=== PATIENT | male | born 1960 | race Caucasian/White ===

== ENCOUNTER 2018-09-04 09:38 | Observation (INO) ==
[2018-09-04] MEDS ORDERED: Aspirin 81 MG TAB.CHEW PO ONE (09:43)
[2018-09-04] MEDS ORDERED: 0.9 % Sodium Chloride 1,000 ML IVC ONE (09:44)
--- NOTE | 2018-09-04 09:45 | Emergency Department Note ---
Disposition Clinical Impression: Atypical chest pain, Acute renal insufficiency Heat exhaustion Qualifiers: Encounter type: initial encounter Qualified Code(s): T67.5XXA - Heat exhaustion, unspecified, initial encounter Disposition: Admitted As Inpatient Condition: Good Referrals: Aidan Merida MD [Primary Care Provider] - () Forms: ED Satisfaction Letter Chest Pain HPI - General Chief Complaint: ED Chest Pain Stated Complaint: substernal chest pain, vomiting Time Seen by Provider: 09/04/18 09:39 Source: patient, EMS, other (Urgent care provider) Mode of arrival: EMS Limitations: no limitations Vital Signs Reviewed: Yes Nursing Notes Reviewed: Yes - History of Present Illness HPI Narrative: Contacted at 9:10 AM from [facility] urgent care that there is a 58-year-old with some intermittent chest pain with nausea that had been going on for 24 hours they desired to transfer. Advised he did not have a family history of heart disease they did report that he had a history of elevated cholesterol, hypertension and a family history of heart disease. They noted he had a stress test 5 years ago but he did not know the result. Patient was evaluated immediately upon arrival to emergency department and he reports she has been having some intermittent chest pain that he cannot describe other than it is "just a little pain". He states it lasts at most a couple seconds and it has been no more frequent than every 2-3 hours. He estimates he has had 4 or 5 of these pains since yesterday evening. He also complains of some body aches including back of his neck and his back. He had some nausea. Vomited once last night after eating area and he was not having chest pain associated with the vomiting. He had also a "charley horse" last night. He can not identify anything that really breath or pain on other than it might of been with certain motions. He thought it was just something musculoskeletal. The pain has not been exertional and he was quite exertional yesterday. He states at work he was around heat and options and was sweating a lot. He denies any shortness of breath, cough, fevers or chills. Denies abdominal or back pains. He is not having weakness or dizziness. Denies any lower extremity complaints. He states he is recently recovered from the left hip replacement and has been back to work for 3 weeks. He does have a history of diabetes, hypertension, elevated cholesterol. He states he his father had some heart trouble but he did not have a heart attack, stent or bypass. He knows of no other family history of heart disease. He does not have obesity, personal history of heart disease, DVT or PE. He has been a nonsmoker for 30 years. He is completely pain-free at this time he did have one pain about an hour prior to arrival. Pt complaint: chest pain Onset (ago): day(s) (1) Duration: intermittent Onset: during rest Pain Location: substernal Severity: mild Quality: other ("Just a little pain") Pain Radiation: none Improves with: nothing Worsens with: movement Associated symptoms: Reports: nausea, vomiting (History evening not associated with chest pain), diaphoresis (At work). Denies: syncope, palpitations, fever, cough, leg swelling - Related Data Home Medications Medication Instructions Recorded Confirmed Aspirin 81 mg PO DAILY 05/17/17 09/04/18 Celecoxib [Celebrex] 200 mg PO DAILY PRN 05/17/17 09/04/18 Lisinopril [Zestril] 40 mg PO DAILY 05/17/17 09/04/18 Lovastatin 40 mg PO DAILY 05/17/17 09/04/18 Mv-Mn/FA/Vit K/Lycop/Lut/Coq10 1 tab PO DAILY 05/17/17 09/04/18 [Daily Multivitamin Capsule] Pantoprazole Sodium 40 mg PO BID 05/17/17 09/04/18 Tamsulosin [Flomax] 0.4 mg PO DAILY 05/17/17 09/04/18 metFORMIN [Glucophage] 500 mg PO BIDWM 05/17/17 09/04/18 Psyllium Husk [Fiber] 1 tab PO DAILY 02/14/18 09/04/18 Previous Rx's Medication Instructions Recorded Aspirin Enteric Coated [Aspirin EC] 325 mg PO BID #20 tablet. 02/14/18 OxyCODONE Immed Rel [Roxicodone 5 5 mg PO Q6HR PRN 5 Days #20 tablet 02/14/18 MG] Allergies Allergy/AdvReac Type Severity Reaction Status Date / Time No Known Allergies Allergy Verified 02/14/18 13:33 All systems ED: reviewed and negative except as stated. Chest Pain PMH - Past Medical History Medical history: Reports: arthritis, diabetes, GERD, hyperlipidemia, hypertension, other (Benign prostatic hypertrophy). Denies: atrial fibrillation, coronary artery disease, DVT, myocardial infarction, pulmonary embolus, thyroid disease Surgical history: Reports: colectomy, hip replacement (Left), orthopedic, other (Back surgery) Psychiatric history: Reports: no psych history Prior Cardiac Testing/Procedures: Stress Test - Social History Smoking Status: Former smoker (30 years ago) Alcohol use: Reports: none Drug use: Reports: none Physical Exam - General Limitations: no limitations General appearance: alert, in no apparent distress - Head Head exam: atraumatic, normocephalic, normal inspection - Eye Eye exam: Present: normal appearance, PERRL, EOMI - ENT ENT exam: normal exam, normal oropharynx, mucous membranes moist - Neck Neck exam: Present: normal inspection, full ROM, trachea midline - Chest Chest inspection: Present: normal inspection, symmetric chest wall rise. Absent: tenderness - Respiratory Respiratory exam: Present: normal lung sounds bilaterally. Absent: respiratory distress, wheezes, prolonged expiratory phase - Cardiovascular Cardiovascular exam: Present: regular rate, normal rhythm, normal heart sounds. Absent: tachycardia - Abdominal Exam Abdominal exam: Present: soft, Non-Tender, normal bowel sounds. Absent: tenderness, distention, guarding, rebound, rigidity - Extremities Exam Extremities exam: Present: normal inspection, full ROM, normal capillary refill. Absent: tenderness, pedal edema, calf tenderness - Expanded Lower Extremity Exam Neurovascular/Tendon exam: Present: normal capillary refill. Absent: motor deficit, sensory deficit, tendon deficit Gait: observed and normal (Patient ambulated easily from the EMS, to our examination bed.) - Back Exam Back exam: Present: normal inspection, full ROM. Absent: tenderness - Neurological Exam Neurological exam: Present: alert, oriented X3 - Psychiatric Psychiatric exam: Present: normal affect, normal mood. Absent: agitated, anxious - Skin Skin exam: Present: warm, dry, intact, normal color. Absent: diaphoresis, pallor Course Course Narrative: 1030: All testing has been discussed with the patient and his and subsequently with Dr. Vasques. He is agreeable with observing this patient. He is demonstrated a significant decline of his renal function from a creatinine of 0.83-2.15. This is likely associated with his work, sweating, dehydration, metformin and celecoxib. He has been recommended inpatient observation with hydration. We will follow his renal function and repeat troponins. There is no current evidence to suggest an acute myocardial event. Verbal orders have been obtained from Dr. Vasques for his observation. Vital Signs Temperature 98 F 09/04/18 09:40 Pulse Rate 95 09/04/18 09:40 Respiratory Rate 18 09/04/18 09:40 Blood Pressure 114/75 09/04/18 09:40 O2 Sat by Pulse Oximetry 97 09/04/18 09:40 Temperature 98 F 09/04/18 09:40 Pulse Rate 91 09/04/18 10:00 Respiratory Rate 18 09/04/18 10:00 Blood Pressure 102/72 09/04/18 10:00 O2 Sat by Pulse Oximetry 95 09/04/18 10:00 Oxygen Delivery Oxygen Delivery Room Air Chest Pain - Differential Diagnosis Likely: atypical chest pain (Heat related illness), costalchondritis, chest pain - Lab Data Lab results reviewed: Yes I reviewed the patient's lab results. Result diagrams: 09/04/18 09:54 09/04/18 09:54 Lab Results 09/04/18 09/04/18 Range/Units 09:54 09:54 WBC 8.9 (4.3-11.1) K/mcL RBC 5.15 (4.19-5.50) M/mcL Hgb 14.4 (12.9-16.9) g/dL Hct 43.7 (37.5-50.1) % MCV 84.9 (83.0-100.0) fL MCH 28.0 (28.0-33.3) pg MCHC 33.0 (31.6-35.5) g/dL RDW 14.6 H (11.5-14.5) % Plt Count 263 (140-400) K/mcL MPV 9.1 L (9.4-12.4) fL Immature Gran % 0.3 (0-4) % Seg Neutrophils % 63.9 % Lymphocytes % 22.5 % Monocytes % 11.9 % Eosinophils % 1.2 % Basophils % 0.2 % Neutrophils # 5.7 (1.6-8.9) K/mcL Lymphocytes # 2.0 (0.6-4.6) K/mcL Monocytes # 1.1 (0.0-1.3) K/mcL Eosinophils # 0.1 (0.0-0.6) K/mcL Basophils # 0.0 (0.0-0.2) K/mcL Sodium 137 (136-145) mEq/L Potassium 4.3 (3.5-5.1) mEq/L Chloride 102 (98-107) mEq/L Carbon Dioxide 25 (23-29) mEq/L BUN 42 H (6-20) mg/dL Creatinine 2.15 H (0.70-1.30) mg/dL Est GFR ( Amer) 38 L (> 60) Est GFR (Non-Af Amer) 32 L (> 60) BUN/Creatinine Ratio 20 (6-26) Glucose 106 H (70-105) mg/dL Calculated Osmolality 295 (280-300) Calcium 9.3 (8.6-10.3) mg/dL Troponin I < 0.03 (< 0.04) ng/mL - Radiology Data Radiology results reviewed: Yes I reviewed the patient's radiology results. Single view chest x-ray is performed. This does not demonstrate evidence for infiltrate, effusion, pneumothorax, foreign body or heart failure. The cardiac silhouette is normal. I do not see abnormality to the osseous structures of the chest. This is on my interpretation. - EKG Data EKG attestation: Yes I reviewed and interpreted this EKG. EKG shows normal: sinus rhythm, axis, intervals, QRS complexes, ST-T waves Rate: tachycardia (105) Rhythm: PAC's Interpretation: no acute changes, normal EKG Heart Score - Score History: Slightly Suspicious EKG: Normal Age: 45-65 Risk Factors: Equal/Greater than 3 risk factor or history of atherosclerotic disease Troponin: Less than normal limit HEART Score Total: 3
[2018-09-04 10:01] LABS: Basophils % 0.2 %; Eosinophils # 0.1 K/mcL (0.0-0.6); Eosinophils % 1.2 %; Hematocrit 43.7 % (37.5-50.1); Hemoglobin 14.4 g/dL (12.9-16.9); Immature Granulocytes % 0.3 % (0-4); Lymphocytes % 22.5 %; Mean Corpuscular Volume 84.9 fL (83.0-100.0); Mean Platelet Volume 9.1 fL (9.4-12.4); Monocytes # 1.1 K/mcL (0.0-1.3); Monocytes % 11.9 %; Neutrophils # 5.7 K/mcL (1.6-8.9); Platelet Count 263 K/mcL (140-400); Red Blood Count 5.15 M/mcL (4.19-5.50); Red Cell Distribution Width 14.6 % (11.5-14.5); Segmented Neutrophils % 63.9 %
[2018-09-04 10:18] LABS: BUN/Creatinine Ratio 20 (6-26); Blood Urea Nitrogen 42 mg/dL (6-20); Calcium 9.3 mg/dL (8.6-10.3); Carbon Dioxide 25 mEq/L (23-29); Chloride 102 mEq/L (98-107); Glucose 106 mg/dL (70-105); Osmolality,Calculated 295 (280-300); Potassium 4.3 mEq/L (3.5-5.1); Sodium 137 mEq/L (136-145); Troponin I < 0.03 ng/mL (< 0.04); eGFR For Non-African Americans 32 (> 60)
[2018-09-04] MEDS ORDERED: Dextrose Gel 15 GM/37.5 ML TUBE PO PRN ×2 (10:56)
[2018-09-04] MEDS ORDERED: MOM Conc 10 ML UD.LIQ PO PRN (10:56)
[2018-09-04] MEDS ORDERED: Ondansetron 4 MG/2 ML VIAL IVP PRN (10:56)
[2018-09-04] MEDS ORDERED: *HR* OxyCODONE Immed Rel 5 MG TABLET PO PRN (10:56)
[2018-09-04] MEDS ORDERED: Naloxone 0.4 MG/ML INJ IVP PRN (10:56)
[2018-09-04] MEDS ORDERED: D5% in Water 1,000 ML IVC PRN (10:56)
[2018-09-04] MEDS ORDERED: *HR* Dextrose 50 % in Water (Syg) 50 ML SYRINGE IVP PRN (10:56)
[2018-09-04] MEDS ORDERED: Mag Hydrox/Al Hydrox/Simeth 30 ML UDC PO PRN (10:56)
[2018-09-04] MEDS: Insulin LISPRO 300 UNITS/3 ML VIAL SQ SCH ×2 (12:24→18:22)
[2018-09-04] MEDS: 0.9 % Sodium Chloride 1,000 ML IVC SCH (12:26)
--- NOTE | 2018-09-04 13:11 | Electrocardiograph Report ---
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
--- NOTE | 2018-09-04 18:19 | Internal Med History&Physical ---
Date of Encounter: 09/04/18 Time of Encounter: 17:40 Assessment and Plan (1) Acute renal insufficiency Current visit: Yes Status: Acute Duration unknown but new from May 2018 labs. Urinalysis and abdomen/pelvic CT will be done to further evaluate. IV fluids have been ordered and labs will be rechecked in a.m. (2) Low TSH level Current visit: Yes Status: Chronic Check thyroid panel in a.m. (3) Hypertension Current visit: No Status: Chronic Blood pressure low normal in emergency room. Hold lisinopril to avoid worsening azotemia. Qualifiers: Hypertension type: unspecified Qualified Code(s): I10 - Essential (primary) hypertension (4) Type 2 diabetes mellitus Current visit: No Status: Chronic Hemoglobin A1c was 6.0% on 06/02/2018. Metformin will be held due to acute renal failure. Accu-Cheks with SSI will be done. 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 Ruelas is a 58 year old male who was sent to [facility] ER from [facility] urgent care after he presented there with complaints of back pain onset yesterday. He describes as discomfort extending from his neck to his low back area. He reports previous similar pain approximately 10 years ago. He reports ~5 "twinges" of chest pain lasting less than 2 seconds yesterday. He reports 1 episode of vomiting and no diarrhea. He was evaluated in emergency room and was found to have significant azotemia which had not been present on May 2018 labs. He was admitted to [facility] floor for ongoing care needs. He denies any change in urine color or frequency of urination. He denies documented kidney disorders in the past. He denies bladder disorders. He has BPH diagnosis and is on Flomax. Past Med Surg Social Fam HX - Past Medical History Medical history: arthritis, diabetes, GERD, hyperlipidemia, hypertension, other Additional medical history: Enlarged prostate Psychiatric history: no psych history - Past Surgical History Surgical History: colectomy, hip replacement, orthopedic, other Additional surgical history: egd. colonoscopy - Social History Smoking Status: Former smoker Smokeless Tobacco Status: Yes Alcohol use: none Drug use: none - Family History Father Living Status: Hx Family Cancer: Yes (prostate cancer mets to brain) Mother Living Status: Hx Family Neuromuscular Disorders: Yes (Parkinsons) Internal Medicine - H&P: Meds Aspirin 81 mg PO DAILY 05/17/17 [History] Celecoxib [Celebrex] 200 mg PO DAILY PRN 05/17/17 [History] Lisinopril [Zestril] 40 mg PO DAILY 05/17/17 [History] Lovastatin 40 mg PO DAILY 05/17/17 [History] Mv-Mn/FA/Vit K/Lycop/Lut/Coq10 [Daily Multivitamin Capsule] 1 tab PO DAILY 05/17/17 [History] Pantoprazole Sodium 40 mg PO BID 05/17/17 [History] Tamsulosin [Flomax] 0.4 mg PO DAILY 05/17/17 [History] metFORMIN [Glucophage] 500 mg PO BIDWM 05/17/17 [History] Aspirin Enteric Coated [Aspirin EC] 325 mg PO BID #20 tablet.dr 02/14/18 [Rx] OxyCODONE Immed Rel [Roxicodone 5 MG] 5 mg PO Q6HR PRN 5 Days #20 tablet 02/14/18 [Rx] Psyllium Husk [Fiber] 1 tab PO DAILY 02/14/18 [History] Allergy/AdvReac Type Severity Reaction Status Date / Time No Known Allergies Allergy Verified 02/14/18 13:33 All Systems PM: A 10-system review of systems was performed and is negative for pertinent findings except as documented above in the HPI. Review of systems: Alcohol: His weight has increased from 85.729 kg February 2018 to present weight of 94.801 kg. Cardiovascular: He has history of hypertension but denies SD heart failure angina DVT or pulmonary embolus Respiratory: He smoked from approximately age [age] but denies chronic lung disease. He does not use home oxygen. GI: He reports EGD was done 2017 with esophageal dilatation. He had a pproximately 6 inches of colon resection in 1973 for colon polyps. His most recent colonoscopy was 2018. He denies disorders of his liver gallbladder or exocrine pancreas : As per history of present illness Neurologic: He denies large distribution strokes or seizures. Endocrine: He was diagnosed with DM 2 approximately 1999. He has dyslipidemia with low HDL. TSH has been suppressed on all 6 lab checks since June 2014. Free T4 and total T3 levels April 2017 were normal. Hematology/oncology: He denies blood disorders cancers or anemia Psychiatric: He denies anxiety depression or other mental health issues [place] skeletal: He has had left hip replacement February 2018. 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 He denies gout or other bone joint or muscle disorders. - Constitutional Vitals: Temp Pulse Resp BP Pulse Ox 97.9 F 91 16 113/72 96 09/04/18 14:07 09/04/18 14:07 09/04/18 14:07 09/04/18 14:07 09/04/18 14:07 Exam: Gen.: He is a well-developed well-nourished male resting comfortably in bed who appears in no acute distress HEENT: Head is atraumatic and normocephalic. Eyes: EOMI. There is no scleral icterus. Mouth: Mucosa is moist. Neck: Supple and nontender. There is no thyromegaly or adenopathy noted. Heart: Regular without murmurs gallops or ectopics Lungs: No wheezes or crackles are heard. Back: Straight without flank tenderness or presacral edema Abdomen: Soft and nontender. No masses or guarding are noted. Extremities: There is no cyanosis edema or clubbing noted. Dorsalis pedis and posterior tibial pulses are 1-2 over 2 bilaterally. Neurologic: Mental status: He is talkative and a good historian. Cranial nerves: Smile is symmetric. Forehead wrinkles bilaterally. Tongue protrudes midline. EOMI. Motor: There is no pronator drift. Cerebellar: Finger to nose is intact bilaterally. Skin: Warm and dry. Internal Med - H&P Results - Labs CBC & Chem 7: 09/04/18 09:54 09/04/18 09:54 Labs: Short CBC 09/04/18 Range/Units 09:54 WBC 8.9 (4.3-11.1) K/mcL Hgb 14.4 (12.9-16.9) g/dL Hct 43.7 (37.5-50.1) % Plt Count 263 (140-400) K/mcL Neutrophils # 5.7 (1.6-8.9) K/mcL BMP 09/04/18 09:54 Sodium 137 Potassium 4.3 Chloride 102 Carbon Dioxide 25 BUN 42 H Creatinine 2.15 H Glucose 106 H Calcium 9.3 Cardiac Enzymes 09/04/18 09/04/18 Range/Units 09:54 11:54 Troponin I < 0.03 < 0.03 (< 0.04) ng/mL - Impressions ITS Impressions Chest X-Ray 09/04/18 09:43 IMPRESSION: No evidence of acute cardiopulmonary disease. D/ / Lopez Rodriguez MD / Lopez Rodriguez MD Interpreting Provider: Lopez Rodriguez MD
[2018-09-04 21:17] LABS: Bilirubin,Urine Negative (Negative); Blood,Urine Negative (Negative); Clarity,Urine Clear (Clear); Color,Urine Yellow (Yellow); Glucose,Urine (UA) Normal (Normal); Ketones,Urine Negative (Negative); Leukocyte Esterase,Urine Negative (Negative); Nitrite,Urine Negative (Negative); PH,Urine 5.5 pH Units (5.0-8.0); Protein,Urine Negative (Neg-Trace); Urobilinogen,Urine Normal (Normal)
[2018-09-05 06:12] LABS: Basophils % 0.3 %; Eosinophils # 0.2 K/mcL (0.0-0.6); Eosinophils % 3.4 %; Hematocrit 40.8 % (37.5-50.1); Hemoglobin 13.1 g/dL (12.9-16.9); Immature Granulocytes % 0.3 % (0-4); Lymphocytes # 1.7 K/mcL (0.6-4.6); Lymphocytes % 28.1 %; Mean Corpuscular HGB Conc 32.1 g/dL (31.6-35.5); Mean Corpuscular Hemoglobin 27.9 pg (28.0-33.3); Mean Corpuscular Volume 86.8 fL (83.0-100.0); Monocytes # 0.8 K/mcL (0.0-1.3); Neutrophils # 3.2 K/mcL (1.6-8.9); Platelet Count 248 K/mcL (140-400); Red Cell Distribution Width 14.4 % (11.5-14.5); Segmented Neutrophils % 54.9 %
[2018-09-05] MEDS: 0.9 % Sodium Chloride 1,000 ML IVC SCH (07:18)
[2018-09-05] MEDS: Insulin LISPRO 300 UNITS/3 ML VIAL SQ SCH (07:29)
[2018-09-05] MEDS ORDERED: *HR* Dextrose 50 % in Water (Vial) 50 ML VIAL IVP PRN (08:15)
[2018-09-05] MEDS ORDERED: Lisinopril 20 MG TABLET PO SCH (09:00)
[2018-09-05] MEDS ORDERED: Multivit/Ca/Min/Fe/FA 1 TAB TABLET PO SCH (09:00)
[2018-09-05] MEDS ORDERED: Aspirin 81 MG TAB.CHEW PO SCH (09:00)
[2018-09-05 09:40] LABS: Triiodothyronine (T3) Free 3.55 pg/mL (2.50-3.90)
[2018-09-05 10:24] VITALS: BP 127/87
[2018-09-05 10:36] LABS: Alanine Aminotransferase 15 Units/L (7-52); Albumin 3.7 g/dL (3.5-5.7); Albumin/Globulin Ratio 1.4 (1.1-2.2); Alkaline Phosphatase 60 Units/L (34-104); Aspartate Amino Transferase 18 Units/L (13-39); BUN/Creatinine Ratio 23 (6-26); Bilirubin,Total 0.8 mg/dL (0.3-1.0); Blood Urea Nitrogen 25 mg/dL (6-20); Calcium 8.8 mg/dL (8.6-10.3); Carbon Dioxide 25 mEq/L (23-29); Chloride 106 mEq/L (98-107); Globulin 2.6 g/dL (2.4-3.5); Glucose 88 mg/dL (70-105); Osmolality,Calculated 290 (280-300); Potassium 4.3 mEq/L (3.5-5.1); Sodium 138 mEq/L (136-145); Total Protein 6.3 g/dL (6.4-8.9); eGFR For Non-African Americans > 60 (> 60)
--- NOTE | 2018-09-05 11:14 | Discharge Summary ---
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 Ruelas is a 58 year old male who was sent to [facility] ER from [facility] urgent care after he presented there with complaints of back pain onset yesterday. He describes as discomfort extending from his neck to his low back area. He reports previous similar pain approximately 10 years ago. He reports ~5 "twinges" of chest pain lasting less than 2 seconds yesterday. He reports 1 episode of vomiting and no diarrhea. He was evaluated in emergency room and was found to have significant azotemia which had not been present on May 2018 labs. He was admitted to [facility] floor for ongoing care needs. Initial orders were written by the emergency room physician. I saw him on September 04 and performed a history and physical. He was given IV fluids. Metformin, Celebrex, and lisinopril were held. Abdomen/pelvis CT and UA were ordered. Urinalysis returned unremarkable. CT of abdomen/pelvis showed no evidence of obstructive uropathy. There were minimal findings suggestive of sclerosing mesenteritis. Multiple bladder diverticula was seen. Follow-up labs on September 05 showed BUN and creatinine significantly improved at 25 and 1.07 respectively with estimated GFR greater than 60. He will remain off lisinopril and Celebrex at discharge. His PCP can determine if either or both can be safely restarted. TSH returned suppressed again at 0.118. Free T4 and T3 were normal. His PCP can monitor/refer as needed. He will be discharged home and follow with Dr. Aidan Merida within 1 week. - Time Spent with Patient Total time spent providing and/or coordinating discharge services: - Discharge Medications Prescriptions: Continued Mv-Mn/FA/Vit K/Lycop/Lut/Coq10 [Daily Multivitamin Capsule] 1 tab PO DAILY Aspirin 81 mg PO DAILY Pantoprazole Sodium 40 mg PO BID metFORMIN [Glucophage] 500 mg PO BIDWM Lovastatin 40 mg PO DAILY Tamsulosin [Flomax] 0.4 mg PO DAILY Psyllium Husk [Fiber] 1 tab PO DAILY OxyCODONE Immed Rel [Roxicodone 5 MG] 5 mg PO Q6HR PRN 5 Days #20 tablet PRN Reason: Pain Discontinued Lisinopril [Zestril] 40 mg PO DAILY Celecoxib [Celebrex] 200 mg PO DAILY PRN PRN Reason: Pain Aspirin Enteric Coated [Aspirin EC] 325 mg PO BID #20 tablet.dr Home Medications: Aspirin 81 mg PO DAILY 05/17/17 [History] Lovastatin 40 mg PO DAILY 05/17/17 [History] Mv-Mn/FA/Vit K/Lycop/Lut/Coq10 [Daily Multivitamin Capsule] 1 tab PO DAILY 05/17/17 [History] Pantoprazole Sodium 40 mg PO BID 05/17/17 [History] Tamsulosin [Flomax] 0.4 mg PO DAILY 05/17/17 [History] metFORMIN [Glucophage] 500 mg PO BIDWM 05/17/17 [History] OxyCODONE Immed Rel [Roxicodone 5 MG] 5 mg PO Q6HR PRN 5 Days #20 tablet 02/14/18 [Rx] Psyllium Husk [Fiber] 1 tab PO DAILY 02/14/18 [History] Allergies/Adverse Reactions: Allergy/AdvReac Type Severity Reaction Status Date / Time No Known Allergies Allergy Verified 02/14/18 13:33 Date of admission: 09/04/18 10:45 Primary care physician: Aidan Merida MD - Constitutional Vitals: Temp Pulse Resp BP Pulse Ox 98.0 F 87 19 127/87 92 09/05/18 10:22 09/05/18 10:22 09/05/18 10:22 09/05/18 10:22 09/05/18 10:22 - Patient Status Disposition: Home, Self-Care Condition: Good - Discharge Instructions Follow Up With: Aidan Merida MD [Primary Care Provider] - 1 week - Diet and Activity Activity: resume usual activities as tolerated Diet: advance to your usual diet
== END 2018-09-05 12:23 | disposition home or self-care (01) ==
LOC: INPPIK 09:38 → EMEROOPIK 09:38 → INPPIK 11:15
PROVIDERS: ADMIT Internal Medicine; ATTEND Internal Medicine